=== PATIENT | male | born 1950 | race Two or more races ===

== ENCOUNTER 2024-02-07 14:05 | Emergency (ER) | payer MEDICARE, SELFPAY ==
[2024-02-07 14:10] VITALS: PULSE 68; TEMP 36.9; O2SAT 96; BMI 35.0
[2024-02-07 14:15] VITALS: BP 160/90
--- NOTE | 2024-02-07 14:19 | US_ITS ---
The [address] [address] Patient Name: LILLIAN SIERRA MRN: [id number] date: 1950 Sex: M Assigned Patient Location: ED.MAIN Current Patient Location: ER Accession/Order Number: [id number] Exam Date: 02/07/2024 14:20 Report Date: 02/07/2024 15:44 At the request of: FREDA DAVID Procedure: US venous doppler LE LT LEFT LOWER EXTREMITY VENOUS ULTRASOUND: 02/07/2024 2:20 PM EDT Clinical Data: pain to left knee Comparison: No previous Grayscale and Doppler evaluation. No evidence of DVT. US/US venous doppler LE LT IMPRESSION: 1. No evidence of DVT but follow-up studies if indicated. Electronically authenticated by: NGUYEN MENDOZA Date: 02/07/2024 15:44
--- NOTE | 2024-02-07 15:05 | ED_ITS ---
HPI HPI - General Adult General Chief complaint: Extremity Injury, Lower Stated complaint: LT KNEE SUSPECT BLOOD CLOT Time Seen by Provider: 02/07/24 14:26 Source: patient Mode of arrival: Wheelchair Limitations: no limitations History of Present Illness HPI narrative: 73-year-old male presents for left knee pain. He has had this for almost a week and recalls no injury. He had been kneeling on concrete. He reports that the pain is behind his knee. His calf and hip and ankle do not hurt. He has a hard time bearing weight on it. The pain is moderate. No fever Related Data Previous Rx's ?Medication ?Instructions ?Recorded ibuprofen 800 mg tablet 800 mg PO Q8H PRN pain #20 tabs 02/07/24 tramadol 50 mg tablet 50 mg PO Q8H PRN pain #20 tabs 02/07/24 Allergies Allergy/AdvReac Type Severity Reaction Status Date / Time No Known Drug Allergies Allergy Verified 02/07/24 14:14 Opioid HPI Opioid Management Most Recent Opioid Data: No Data to Display Review of Systems ROS Narrative A ten point review of systems is negative except as noted above. Exam Narrative Exam Narrative: Nurses note and vital signs reviewed and patient is not hypoxic. General: The patient appears well and in no apparent distress. Skin: Warm, dry, no pallor noted. There is no rash noted. Head: Normocephalic, atraumatic Eye: Normal conjunctiva, no drainage Ears, Nose, Mouth, and Throat: oral mucosa is moist. Nares patent. Cardiovascular: Regular Rate and Rhythm Respiratory: Patient is in no distress, no accessory muscle use, lungs are clear to auscultation, no wheezing, rales or rhonchi Back: non-tender GI: Soft and nontender Musculoskeletal: The left knee is mildly swollen but it is not hot to touch. He has some tenderness of the popliteal fossa. No calf tenderness or swelling Neurological: A&O, normal speech Psychiatric: Cooperative Constitutional Vital Signs, click to edit/add: Last Vital Signs Temp 98.5 F 02/07/24 14:10 Pulse 68 02/07/24 15:10 Resp 18 02/07/24 15:10 BP 155/78 H 02/07/24 15:10 Pulse Ox 97 02/07/24 15:10 O2 Del Method Room Air 02/07/24 14:10 Course Vital Signs Vital signs: Vital Signs Temperature 98.5 F 02/07/24 14:10 Pulse Rate 68 02/07/24 14:10 Respiratory Rate 18 02/07/24 14:10 Pulse Oximetry 96 02/07/24 14:10 Oxygen Delivery Method Room Air 02/07/24 14:10 Temperature 98.5 F 02/07/24 14:10 Pulse Rate 68 02/07/24 15:10 Respiratory Rate 18 02/07/24 15:10 Blood Pressure 155/78 H 02/07/24 15:10 Pulse Oximetry 97 02/07/24 15:10 Oxygen Delivery Method Room Air 02/07/24 14:10 Medical Decision Making MDM Narrative Medical decision making narrative: X-ray shows small effusion. He is from [facility] and has an orthopedist there that he will follow-up with. He brought an Bhavesh wrap and crutches with him that he will utilize. He was given pain medication. His x- rays were sent on a disc. Treatment diagnosis and follow-up were discussed with the patient. I have no clinical suspicion of a septic joint. Differential Diagnosis Differential Diagnosis: Knee sprain, arthritis, fracture Imaging Data Knee x-ray: Radiologist's impression: ITS Impressions Venous Doppler Study 02/07/24 14:19 IMPRESSION: 1. No evidence of DVT but follow-up studies if indicated. Electronically authenticated by: NGUYEN MENDOZA Date: 02/07/2024 15:44 Knee X-Ray 02/07/24 15:05 IMPRESSION: No acute fracture or dislocation. Electronically authenticated by: JAVAN HERNANDEZ Date: 02/07/2024 15:43 Discharge Plan Discharge Stand Alone Forms: Portal Instructions Chief Complaint: Extremity Injury, Lower Clinical Impression: Left knee pain Patient Disposition: Home, Self-Care Time of Disposition Decision: 16:01 Condition: Good Mode of Transportation: Private Vehicle Prescriptions / Home Meds: New ibuprofen 800 mg tablet 800 mg PO Q8H PRN (Reason: pain) Qty: 20 0RF tramadol 50 mg tablet 50 mg PO Q8H PRN (Reason: pain) Qty: 20 0RF Print Language: Lebanese Instructions: Knee Pain (ED) Additional Instructions: Follow-up with your established orthopedist in [place] Referrals: Physician,Non-Staff, MD [Primary Care Provider] - 1 week
--- NOTE | 2024-02-07 15:05 | XR_ITS ---
The [address] [address] Patient Name: LILLIAN SIERRA MRN: [id number] date: 1950 Sex: M Assigned Patient Location: ER Current Patient Location: ER Accession/Order Number: [id number] Exam Date: 02/07/2024 15:15 Report Date: 02/07/2024 15:43 At the request of: FREDA DAVID Procedure: XR knee LT 3V EXAM: XR knee LT 3V TECHNIQUE: AP, lateral and oblique views left knee HISTORY: Atraumatic pain and swelling COMPARISON: None. FINDINGS: No acute fracture or dislocation. Vascular calcifications are seen. Mild degenerative spurring throughout the knee. Small knee joint effusion. XR/XR knee LT 3V IMPRESSION: No acute fracture or dislocation. Electronically authenticated by: JAVAN HERNANDEZ Date: 02/07/2024 15:43
[2024-02-07 15:10] VITALS: BP 155/78; PULSE 68; O2SAT 97
[2024-02-07 16:05] VITALS: BP 166/84
== END 2024-02-07 16:16 | disposition home or self-care (01) ==
PROVIDERS: Emergency Provider Emergency Medicine
DX: M25.562 Pain in left knee (principal)
CPT/HCPCS: 73562; 93971; 99284